=== PATIENT | female | born 2000 | race Caucasian/White ===

== ENCOUNTER → 2018-01-25 | Outpatient (CLI) | payer BC ==
--- NOTE | 2018-01-25 08:09 | DIAGNOSTIC IMAGING REPORT ---
ABDOMINAL ULTRASOUND, RIGHT UPPER QUADRANT HISTORY: Intermittent diarrhea. Abdominal cramping and nausea. COMPARISON: None. FINDINGS: The liver is sonographically normal. There is no biliary ductal dilatation. The pancreatic body is normal. Head and tail are obscured. There is no right hydronephrosis. The gallbladder is normal. There are no gallstones. IMPRESSION: No significant abnormality identified within the right upper quadrant. Electronically signed by: Jon Torrez M.D. 01/25/2018 8:07 AM Dictated Date/Time: 01/25/2018 8:07 AM
== END | disposition home or self-care (01) ==
LOC: C.ULTR 07:29
PROVIDERS: ATTEND Registered Nurse
DX: R11.0 Nausea (principal); R19.7 Diarrhea, unspecified; R10.9 Unspecified abdominal pain